=== PATIENT | male | born 1960 | race Caucasian/White ===

== ENCOUNTER 2017-11-19 12:25 | Inpatient (IN) ==
[2017-11-19] MEDS ORDERED: Aluminum/Magnesium/Simethacone Susp 30 ML UDC PO PRN (16:59)
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
[2017-11-20 10:51] LABS: Baso # (Auto) 0.1 th/mm3 (0.0-0.2); Baso % (Auto) 0.6 % (0.0-2.0); Eos # (Auto) 0.3 th/mm3 (0.0-0.4); Eos % (Auto) 2.6 % (0.0-4.0); Hematocrit 46.4 % (39.0-51.0); Hemoglobin 15.4 gm/dL (13.0-17.0); Lymph # (Auto) 1.5 th/mm3 (1.0-4.8); Lymph % (Auto) 15.6 % (9.0-44.0); Mean Corpuscular HGB Conc 33.2 % (32.0-36.0); Mean Corpuscular Hemoglobin 31.8 pg (27.0-34.0); Mean Corpuscular Volume 95.8 fL (80.0-100.0); Mean Platelet Volume 7.8 fL (7.0-11.0); Mono # (Auto) 1.1 th/mm3 (0.0-0.9); Mono % (Auto) 11.2 % (0.0-8.0); Neut # (Auto) 6.9 th/mm3 (1.8-7.7); Platelet Count 312 th/mm3 (150-450); Red Blood Count 4.84 mil/mm3 (4.50-5.90); Red Cell Distribution Width 13.1 % (11.6-17.2); White Blood Count 9.8 th/mm3 (4.0-11.0)
[2017-11-20 11:09] LABS: Alanine Aminotransferase 236 U/L (12-78); Albumin 3.8 g/dL (3.4-5.0); Anion Gap 5 meq/L (5-15); Aspartate Aminotransferase 109 U/L (15-37); Blood Urea Nitrogen 18 mg/dL (7-18); Calcium 9.5 mg/dL (8.5-10.1); Carbon Dioxide 34.6 meq/L (21.0-32.0); Chloride 102 meq/L (98-107); Cholesterol 170 mg/dL (120-200); Glomerular Filtration Rate 71 mL/min (>89); Glucose,Random 71 mg/dL (74-106); Potassium 4.5 meq/L (3.5-5.1); Sodium 142 meq/L (136-145); Triglycerides 252 mg/dL (42-150)
[2017-11-20 11:12] LABS: Alkaline Phosphatase 101 U/L (45-117); Chol/HDL Ratio 2.57 Ratio; HDL Cholesterol 66.1 mg/dL (40.0-60.0); LDL Cholesterol,Calculated 54 mg/dL (0-99); Total Protein 7.4 g/dL (6.4-8.2)
[2017-11-20] MEDS: Acetaminophen 325 MG Tablet PO PRN (11:39)
[2017-11-20 12:57] LABS: Hemoglobin A1c 5.3 % (4.3-6.0)
[2017-11-21 10:14] LABS: Albumin 3.8 g/dL (3.4-5.0); Anion Gap 10 meq/L (5-15); Aspartate Aminotransferase 89 U/L (15-37); Blood Urea Nitrogen 21 mg/dL (7-18); Calcium 9.1 mg/dL (8.5-10.1); Carbon Dioxide 27.5 meq/L (21.0-32.0); Chloride 104 meq/L (98-107); Glomerular Filtration Rate 72 mL/min (>89); Glucose,Random 85 mg/dL (74-106); Sodium 141 meq/L (136-145)
[2017-11-21 10:15] LABS: Alanine Aminotransferase 219 U/L (12-78)
[2017-11-21 10:24] LABS: Alkaline Phosphatase 111 U/L (45-117); Total Protein 7.6 g/dL (6.4-8.2)
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
[2017-11-21] MEDS: Acetaminophen 325 MG Tablet PO PRN (14:40)
[2017-11-22] MEDS: Acetaminophen 325 MG Tablet PO PRN (20:29)
--- NOTE | 2017-11-22 21:21 | P.PNPSY ---
Subjective Chief Complaint: Worley Act Remarks: Pt seen and discussed with staff. He reports that mood is improved and he denies SI/HI. He has been attending therapeutic groups. He states that he realizes that he didn't keep up with any of the things that he was doing while under [facility] and he ended back up in addiction. 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 Mental Status Examination Appearance: Appropriate Consciousness: Alert Orientation: x4 Motor Activity: Normal gait Speech: Unremarkable Language: Other (Somewhat rambling) Fund of Knowledge: Adequate Attention and Concentration: Adequate Memory: Unremarkable (Grossly intact on clinical exam) Mood: Appropriate, Other Affect: Flat Thought Process & Associations: Intact Thought Content: Appropriate Hallucination Type: None Delusion Type: Other (No braydon delusions. Veracity of concerns regarding Mr. Marina unclear.) Suicidal Ideation: No Suicidal Plan: No Suicidal Intention: No Homicidal Ideation: No Homicidal Plan: No Homicidal Intention: No Insight: Fair Judgment: Impulsive Assessment and Plan - Assessment (1) Adjustment disorder Code(s): F43.20 - Adjustment disorder, unspecified Status: Acute (2) Polysubstance abuse Code(s): F19.10 - Other psychoactive substance abuse, uncomplicated Status: Acute - Plan Plan: Continue current tx plan Justification for Continued Inpatient Stay: monitoring for safety Request Healthcare Surrogate/Guardian Advocate?: No
--- NOTE | 2017-11-23 14:02 | P.PNPSY ---
Subjective Chief Complaint: Worley Act Remarks: Reviewed electronic medical record discussed case with staff. Follow-up was conducted in patient's room with nurse present. Patient reports that he feels "pretty good". States that he has been sleeping and eating well. Spoke with his counselor Kain who advises that the patient has been attempting to contact solutions by the [facility] for placement. I advised the patient to continue making this phone calls today. Mental Status Examination Appearance: Appropriate Consciousness: Alert Orientation: x4 Motor Activity: Normal gait Speech: Unremarkable Language: Other (Somewhat rambling) Fund of Knowledge: Adequate Attention and Concentration: Adequate Memory: Unremarkable (Grossly intact on clinical exam) Mood: Appropriate, Other Affect: Flat Thought Process & Associations: Intact Thought Content: Appropriate Hallucination Type: None Delusion Type: Other (No braydon delusions. Veracity of concerns regarding Mr. Marina unclear.) Suicidal Ideation: No Suicidal Plan: No Suicidal Intention: No Homicidal Ideation: No Homicidal Plan: No Homicidal Intention: No Insight: Fair Judgment: Impulsive Assessment and Plan - Plan Plan: Continue with current treatment plan. Justification for Continued Inpatient Stay: Moving this patient to a less restrictive environment would likely result in decompensation. Request Healthcare Surrogate/Guardian Advocate?: No
[2017-11-23] MEDS: Acetaminophen 325 MG Tablet PO PRN (20:29)
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
== END 2017-11-24 14:35 | disposition home or self-care (01) ==
LOC: H270 16:00 → H260 11-21 10:13
PROVIDERS: ADMIT Psychiatry & Neurology Psychiatry; ATTEND Psychiatry & Neurology Psychiatry